=== PATIENT | male | born 1945 | race Caucasian/White ===

== ENCOUNTER 2022-03-07 16:53 | Inpatient (IN) ==
[2022-03-07 17:54] LABS: Basophils % 0.7 %; Eosinophils # 0.4 K/mcL (0.0-0.6); Eosinophils % 6.3 %; Hematocrit 32.3 % (37.5-50.1); Hemoglobin 10.9 g/dL (12.9-16.9); Immature Granulocytes % 0.5 % (0-4); Lymphocytes # 0.9 K/mcL (0.6-4.6); Lymphocytes % 15.9 %; Mean Corpuscular HGB Conc 33.7 g/dL (31.6-35.5); Mean Corpuscular Hemoglobin 30.8 pg (28.0-33.3); Mean Corpuscular Volume 91.2 fL (83.0-100.0); Mean Platelet Volume 9.4 fL (9.4-12.4); Monocytes # 0.3 K/mcL (0.0-1.3); Monocytes % 5.6 %; Neutrophils # 4.2 K/mcL (1.6-8.9); Platelet Count 208 K/mcL (140-400); Red Blood Count 3.54 M/mcL (4.19-5.50); Red Cell Distribution Width 13.6 % (11.5-14.5); White Blood Count 5.9 K/mcL (4.3-11.1)
[2022-03-07 18:01] LABS: Prothrombin Time 22.2 Seconds (9.4-12.1)
[2022-03-07 18:11] LABS: Calcium 9.2 mg/dL (8.6-10.3); Potassium 4.5 mEq/L (3.5-5.1)
[2022-03-07] MEDS ORDERED: *HR* Heparin 5,000 UNIT/ML VIAL IVP PRN (18:22)
[2022-03-07] MEDS ORDERED: *HR* Heparin 5,000 UNIT/ML VIAL IVP ONE (18:22)
[2022-03-07] MEDS ORDERED: Heparin 25,000UNIT/250ML 1/2NS 25,000 UNIT/250 ML IV.SOLN IVC SCH (18:30)
[2022-03-07 18:41] LABS: Heparin anti-factor XA UFH > 2.65 IU/mL (0.30-0.70)
[2022-03-07] MEDS ORDERED: Naloxone 0.4 MG/ML INJ IVP PRN (18:53)
[2022-03-07] MEDS ORDERED: Ondansetron 4 MG/2 ML VIAL IVP PRN (18:53)
[2022-03-07] MEDS ORDERED: Acetaminophen 325 MG TABLET PO PRN (18:53)
[2022-03-07] MEDS ORDERED: MOM Conc 10 ML UD.LIQ PO PRN (18:53)
[2022-03-07] MEDS: Heparin 25,000UNIT/250ML 1/2NS 25,000 UNIT/250 ML IV.SOLN IVC SCH (19:01)
[2022-03-08 02:45] LABS: Basophils # 0.1 K/mcL (0.0-0.2); Basophils % 0.8 %; Eosinophils # 0.4 K/mcL (0.0-0.6); Eosinophils % 6.3 %; Hematocrit 33.2 % (37.5-50.1); Hemoglobin 11.1 g/dL (12.9-16.9); Immature Granulocytes % 0.7 % (0-4); Lymphocytes # 1.2 K/mcL (0.6-4.6); Lymphocytes % 20.1 %; Mean Corpuscular HGB Conc 33.4 g/dL (31.6-35.5); Mean Corpuscular Hemoglobin 30.7 pg (28.0-33.3); Mean Platelet Volume 9.2 fL (9.4-12.4); Monocytes # 0.4 K/mcL (0.0-1.3); Monocytes % 5.9 %; Platelet Count 201 K/mcL (140-400); Red Blood Count 3.61 M/mcL (4.19-5.50); Red Cell Distribution Width 13.5 % (11.5-14.5); Segmented Neutrophils % 66.2 %; White Blood Count 6.1 K/mcL (4.3-11.1)
[2022-03-08 03:40] LABS: Calcium 9.4 mg/dL (8.6-10.3); Potassium 4.4 mEq/L (3.5-5.1)
[2022-03-08] MEDS ORDERED: allopurinoL 300 MG TABLET PO SCH (09:00)
[2022-03-08] MEDS: hydrOXYzine pamoate 25 MG CAPSULE PO SCH (09:15)
[2022-03-08] MEDS: carvediloL 6.25 MG TABLET PO SCH ×2 (09:16→16:24)
[2022-03-08] MEDS: lisinopriL 10 MG TABLET PO SCH (09:17)
[2022-03-08] MEDS: calcitrioL 0.25 MCG CAPSULE PO SCH (09:17)
[2022-03-08] MEDS: amLODIPine 5 MG TABLET PO SCH (09:17)
[2022-03-08] MEDS: Cyanocobalamin (B-12) 1,000 MCG TABLET PO SCH (09:18)
[2022-03-08] MEDS: Multivit/Ca/Min/Fe/FA 1 TAB TABLET PO SCH (09:18)
[2022-03-08] MEDS: Heparin 25,000UNIT/250ML 1/2NS 25,000 UNIT/250 ML IV.SOLN IVC SCH (09:48)
[2022-03-09] MEDS: amLODIPine 5 MG TABLET PO SCH (08:24)
[2022-03-09] MEDS: Cyanocobalamin (B-12) 1,000 MCG TABLET PO SCH (08:24)
[2022-03-09] MEDS: hydrOXYzine pamoate 25 MG CAPSULE PO SCH (08:24)
[2022-03-09] MEDS: carvediloL 6.25 MG TABLET PO SCH ×2 (08:24→16:44)
[2022-03-09] MEDS: calcitrioL 0.25 MCG CAPSULE PO SCH (08:24)
[2022-03-09] MEDS: Multivit/Ca/Min/Fe/FA 1 TAB TABLET PO SCH (08:24)
[2022-03-09 10:41] LABS: Hematocrit 32.6 % (37.5-50.1); Hemoglobin 10.8 g/dL (12.9-16.9); Mean Corpuscular HGB Conc 33.1 g/dL (31.6-35.5); Mean Corpuscular Hemoglobin 30.7 pg (28.0-33.3); Mean Corpuscular Volume 92.6 fL (83.0-100.0); Mean Platelet Volume 10.1 fL (9.4-12.4); Platelet Count 173 K/mcL (140-400); Red Blood Count 3.52 M/mcL (4.19-5.50); Red Cell Distribution Width 13.5 % (11.5-14.5)
[2022-03-09 10:53] LABS: Calcium 9.3 mg/dL (8.6-10.3); Potassium 4.5 mEq/L (3.5-5.1)
[2022-03-09] MEDS: Heparin 25,000UNIT/250ML 1/2NS 25,000 UNIT/250 ML IV.SOLN IVC SCH (11:01)
[2022-03-09] MEDS: PHOSPHOROUS PO SCH (20:43)
[2022-03-10] MEDS: Heparin 25,000UNIT/250ML 1/2NS 25,000 UNIT/250 ML IV.SOLN IVC SCH (01:30)
[2022-03-10] MEDS: Melatonin 3 MG TABLET PO PRN ×2 (01:30→21:24)
[2022-03-10 01:36] LABS: Hematocrit 32.5 % (37.5-50.1); Mean Corpuscular HGB Conc 33.8 g/dL (31.6-35.5); Mean Corpuscular Hemoglobin 30.7 pg (28.0-33.3); Mean Corpuscular Volume 90.8 fL (83.0-100.0); Mean Platelet Volume 9.4 fL (9.4-12.4); Platelet Count 203 K/mcL (140-400); Red Blood Count 3.58 M/mcL (4.19-5.50); Red Cell Distribution Width 13.3 % (11.5-14.5); White Blood Count 7.3 K/mcL (4.3-11.1)
[2022-03-10] MEDS: *HR* Heparin 5,000 UNIT/ML VIAL IVP PRN ×2 (01:53→15:15)
[2022-03-10 03:34] LABS: Calcium 10.1 mg/dL (8.6-10.3); Potassium 4.7 mEq/L (3.5-5.1)
[2022-03-10] MEDS: Magnesium Oxide 400 MG TABLET PO SCH (08:29)
[2022-03-10] MEDS: amLODIPine 5 MG TABLET PO SCH (08:30)
[2022-03-10] MEDS: hydrOXYzine pamoate 25 MG CAPSULE PO SCH ×2 (08:30→21:24)
[2022-03-10] MEDS: Multivit/Ca/Min/Fe/FA 1 TAB TABLET PO SCH (08:30)
[2022-03-10] MEDS: calcitrioL 0.25 MCG CAPSULE PO SCH (08:30)
[2022-03-10] MEDS: Cyanocobalamin (B-12) 1,000 MCG TABLET PO SCH (08:30)
[2022-03-10] MEDS: carvediloL 6.25 MG TABLET PO SCH ×2 (08:30→17:05)
[2022-03-10] MEDS: PHOSPHOROUS PO SCH ×2 (08:31→21:25)
[2022-03-11] MEDS: Heparin 25,000UNIT/250ML 1/2NS 25,000 UNIT/250 ML IV.SOLN IVC SCH (03:18)
[2022-03-11 03:49] LABS: Hematocrit 34.9 % (37.5-50.1); Hemoglobin 11.8 g/dL (12.9-16.9); Mean Corpuscular HGB Conc 33.8 g/dL (31.6-35.5); Mean Corpuscular Hemoglobin 30.6 pg (28.0-33.3); Mean Corpuscular Volume 90.6 fL (83.0-100.0); Mean Platelet Volume 9.6 fL (9.4-12.4); Platelet Count 218 K/mcL (140-400); Red Blood Count 3.85 M/mcL (4.19-5.50); Red Cell Distribution Width 13.5 % (11.5-14.5); White Blood Count 8.9 K/mcL (4.3-11.1)
[2022-03-11 04:50] LABS: Calcium 10.4 mg/dL (8.6-10.3); Potassium 4.6 mEq/L (3.5-5.1)
[2022-03-11] MEDS: Magnesium Oxide 400 MG TABLET PO SCH (08:42)
[2022-03-11] MEDS: hydrOXYzine pamoate 25 MG CAPSULE PO SCH ×2 (08:42→19:48)
[2022-03-11] MEDS: calcitrioL 0.25 MCG CAPSULE PO SCH (08:42)
[2022-03-11] MEDS: Multivit/Ca/Min/Fe/FA 1 TAB TABLET PO SCH (08:42)
[2022-03-11] MEDS: Cyanocobalamin (B-12) 1,000 MCG TABLET PO SCH (08:43)
[2022-03-11] MEDS: carvediloL 6.25 MG TABLET PO SCH ×2 (08:43→16:44)
[2022-03-11] MEDS: amLODIPine 5 MG TABLET PO SCH (08:43)
[2022-03-11] MEDS: PHOSPHOROUS PO SCH ×2 (08:43→19:49)
[2022-03-11 10:28] LABS: INR 1.3
[2022-03-11] MEDS: *HR* Heparin 5,000 UNIT/ML VIAL IVP PRN (11:22)
[2022-03-11] MEDS ORDERED: *HR* Warfarin 5 MG TABLET PO ONE (18:00)
[2022-03-11] MEDS ORDERED: Warfarin perPT PO PRN (18:00)
[2022-03-12] MEDS: Heparin 25,000UNIT/250ML 1/2NS 25,000 UNIT/250 ML IV.SOLN IVC SCH ×3 (08:01→17:56)
[2022-03-12] MEDS: hydrOXYzine pamoate 25 MG CAPSULE PO SCH ×2 (08:03→20:00)
[2022-03-12] MEDS: Multivit/Ca/Min/Fe/FA 1 TAB TABLET PO SCH (08:03)
[2022-03-12] MEDS: calcitrioL 0.25 MCG CAPSULE PO SCH (08:03)
[2022-03-12] MEDS: PHOSPHOROUS PO SCH ×2 (08:03→20:00)
[2022-03-12] MEDS: Magnesium Oxide 400 MG TABLET PO SCH (08:03)
[2022-03-12] MEDS: carvediloL 6.25 MG TABLET PO SCH ×2 (08:03→17:50)
[2022-03-12] MEDS: amLODIPine 5 MG TABLET PO SCH (08:03)
[2022-03-12] MEDS: Cyanocobalamin (B-12) 1,000 MCG TABLET PO SCH (08:04)
[2022-03-12 08:21] LABS: Basophils # 0.1 K/mcL (0.0-0.2); Basophils % 1.1 %; Eosinophils # 0.2 K/mcL (0.0-0.6); Eosinophils % 2.7 %; Hemoglobin 10.5 g/dL (12.9-16.9); Immature Granulocytes % 1.8 % (0-4); Lymphocytes # 2.8 K/mcL (0.6-4.6); Lymphocytes % 31.1 %; Mean Corpuscular HGB Conc 33.9 g/dL (31.6-35.5); Mean Corpuscular Hemoglobin 30.5 pg (28.0-33.3); Mean Corpuscular Volume 90.1 fL (83.0-100.0); Mean Platelet Volume 9.6 fL (9.4-12.4); Monocytes # 0.5 K/mcL (0.0-1.3); Monocytes % 5.3 %; Neutrophils # 5.2 K/mcL (1.6-8.9); Platelet Count 192 K/mcL (140-400); Red Blood Count 3.44 M/mcL (4.19-5.50); Red Cell Distribution Width 13.3 % (11.5-14.5); White Blood Count 8.9 K/mcL (4.3-11.1)
[2022-03-12 08:40] LABS: INR 1.2; Prothrombin Time 13.3 Seconds (9.4-12.1)
[2022-03-12 08:52] LABS: Calcium 9.7 mg/dL (8.6-10.3); Potassium 4.5 mEq/L (3.5-5.1)
[2022-03-12] MEDS ORDERED: *HR* Warfarin 7.5 MG TABLET PO ONE (18:00)
[2022-03-13 07:56] LABS: Basophils # 0.1 K/mcL (0.0-0.2); Basophils % 0.7 %; Eosinophils # 0.3 K/mcL (0.0-0.6); Eosinophils % 3.3 %; Hematocrit 32.3 % (37.5-50.1); Hemoglobin 10.9 g/dL (12.9-16.9); Immature Granulocytes % 2.2 % (0-4); Lymphocytes # 2.3 K/mcL (0.6-4.6); Lymphocytes % 24.3 %; Mean Corpuscular HGB Conc 33.7 g/dL (31.6-35.5); Mean Corpuscular Hemoglobin 30.1 pg (28.0-33.3); Mean Corpuscular Volume 89.2 fL (83.0-100.0); Mean Platelet Volume 9.9 fL (9.4-12.4); Monocytes # 0.5 K/mcL (0.0-1.3); Monocytes % 5.6 %; Platelet Count 194 K/mcL (140-400); Red Blood Count 3.62 M/mcL (4.19-5.50); Red Cell Distribution Width 13.3 % (11.5-14.5); Segmented Neutrophils % 63.9 %; White Blood Count 9.4 K/mcL (4.3-11.1)
[2022-03-13 08:05] LABS: INR 1.2; Prothrombin Time 13.8 Seconds (9.4-12.1)
[2022-03-13 08:16] LABS: Calcium 9.9 mg/dL (8.6-10.3); Potassium 4.2 mEq/L (3.5-5.1)
[2022-03-13] MEDS: carvediloL 6.25 MG TABLET PO SCH ×2 (09:39→17:56)
[2022-03-13] MEDS: Magnesium Oxide 400 MG TABLET PO SCH (09:39)
[2022-03-13] MEDS: calcitrioL 0.25 MCG CAPSULE PO SCH (09:39)
[2022-03-13] MEDS: lisinopriL 10 MG TABLET PO SCH (09:39)
[2022-03-13] MEDS: amLODIPine 5 MG TABLET PO SCH (09:39)
[2022-03-13] MEDS: Cyanocobalamin (B-12) 1,000 MCG TABLET PO SCH (09:40)
[2022-03-13] MEDS: hydrOXYzine pamoate 25 MG CAPSULE PO SCH ×2 (09:40→21:18)
[2022-03-13] MEDS: Multivit/Ca/Min/Fe/FA 1 TAB TABLET PO SCH (09:40)
[2022-03-13] MEDS: PHOSPHOROUS PO SCH ×2 (09:40→21:19)
[2022-03-13] MEDS: Heparin 25,000UNIT/250ML 1/2NS 25,000 UNIT/250 ML IV.SOLN IVC SCH (11:18)
[2022-03-13] MEDS: Sennosides/Docusate Sodium TABLET PO SCH (11:20)
[2022-03-13] MEDS ORDERED: *HR* Warfarin 5 MG TABLET PO ONE (18:00)
[2022-03-14 06:36] LABS: Basophils # 0.1 K/mcL (0.0-0.2); Basophils % 0.8 %; Eosinophils # 0.3 K/mcL (0.0-0.6); Hematocrit 34.9 % (37.5-50.1); Hemoglobin 11.6 g/dL (12.9-16.9); Immature Granulocytes % 2.2 % (0-4); Lymphocytes # 2.9 K/mcL (0.6-4.6); Lymphocytes % 25.8 %; Mean Corpuscular HGB Conc 33.2 g/dL (31.6-35.5); Mean Corpuscular Hemoglobin 30.2 pg (28.0-33.3); Mean Corpuscular Volume 90.9 fL (83.0-100.0); Mean Platelet Volume 10.1 fL (9.4-12.4); Monocytes # 0.5 K/mcL (0.0-1.3); Monocytes % 4.6 %; Neutrophils # 7.1 K/mcL (1.6-8.9); Platelet Count 233 K/mcL (140-400); Red Blood Count 3.84 M/mcL (4.19-5.50); Red Cell Distribution Width 13.7 % (11.5-14.5); Segmented Neutrophils % 63.6 %; White Blood Count 11.2 K/mcL (4.3-11.1)
[2022-03-14 06:55] LABS: INR 1.3; Prothrombin Time 14.9 Seconds (9.4-12.1)
[2022-03-14 07:04] LABS: Calcium 10.4 mg/dL (8.6-10.3); Magnesium 1.6 mg/dL (1.6-2.6); Potassium 4.2 mEq/L (3.5-5.1)
[2022-03-14] MEDS: Sennosides/Docusate Sodium TABLET PO SCH (08:41)
[2022-03-14] MEDS: lisinopriL 10 MG TABLET PO SCH (08:41)
[2022-03-14] MEDS: Cyanocobalamin (B-12) 1,000 MCG TABLET PO SCH (08:41)
[2022-03-14] MEDS: amLODIPine 5 MG TABLET PO SCH (08:41)
[2022-03-14] MEDS: Multivit/Ca/Min/Fe/FA 1 TAB TABLET PO SCH (08:41)
[2022-03-14] MEDS: calcitrioL 0.25 MCG CAPSULE PO SCH (08:41)
[2022-03-14] MEDS: hydrOXYzine pamoate 25 MG CAPSULE PO SCH ×2 (08:41→21:10)
[2022-03-14] MEDS: Magnesium Oxide 400 MG TABLET PO SCH (08:42)
[2022-03-14] MEDS: carvediloL 6.25 MG TABLET PO SCH ×2 (08:44→18:02)
[2022-03-14] MEDS: Heparin 25,000UNIT/250ML 1/2NS 25,000 UNIT/250 ML IV.SOLN IVC SCH ×2 (13:47→13:56)
[2022-03-14] MEDS: PHOSPHOROUS PO SCH ×2 (13:48→21:10)
[2022-03-14] MEDS: MOM Conc 10 ML UD.LIQ PO SCH (13:56)
[2022-03-14] MEDS ORDERED: *HR* Warfarin 5 MG TABLET PO ONE (18:00)
[2022-03-15 07:32] LABS: Basophils # 0.1 K/mcL (0.0-0.2); Basophils % 0.8 %; Eosinophils # 0.2 K/mcL (0.0-0.6); Eosinophils % 2.1 %; Hematocrit 31.4 % (37.5-50.1); Hemoglobin 10.8 g/dL (12.9-16.9); Immature Granulocytes % 2.7 % (0-4); Lymphocytes # 2.4 K/mcL (0.6-4.6); Lymphocytes % 23.5 %; Mean Corpuscular HGB Conc 34.4 g/dL (31.6-35.5); Mean Corpuscular Hemoglobin 31.1 pg (28.0-33.3); Mean Corpuscular Volume 90.5 fL (83.0-100.0); Mean Platelet Volume 9.5 fL (9.4-12.4); Monocytes # 0.5 K/mcL (0.0-1.3); Monocytes % 4.9 %; Neutrophils # 6.8 K/mcL (1.6-8.9); Platelet Count 199 K/mcL (140-400); Red Blood Count 3.47 M/mcL (4.19-5.50); Red Cell Distribution Width 13.8 % (11.5-14.5); White Blood Count 10.3 K/mcL (4.3-11.1)
[2022-03-15 07:53] LABS: INR 2.1
[2022-03-15 07:58] LABS: Potassium 4.6 mEq/L (3.5-5.1)
[2022-03-15] MEDS: Heparin 25,000UNIT/250ML 1/2NS 25,000 UNIT/250 ML IV.SOLN IVC SCH (08:47)
[2022-03-15 10:41] VITALS: BP 108/57; PULSE 68; RESP 18; TEMP 98.4; O2SAT 97
[2022-03-15] MEDS: Magnesium Oxide 400 MG TABLET PO SCH ×2 (11:22→11:23)
[2022-03-15] MEDS: Sennosides/Docusate Sodium TABLET PO SCH (11:22)
[2022-03-15] MEDS: Multivit/Ca/Min/Fe/FA 1 TAB TABLET PO SCH (11:23)
[2022-03-15] MEDS: carvediloL 6.25 MG TABLET PO SCH (11:23)
[2022-03-15] MEDS: calcitrioL 0.25 MCG CAPSULE PO SCH (11:23)
[2022-03-15] MEDS: PHOSPHOROUS PO SCH (11:23)
[2022-03-15] MEDS: hydrOXYzine pamoate 25 MG CAPSULE PO SCH (11:23)
[2022-03-15] MEDS: MOM Conc 10 ML UD.LIQ PO SCH (11:23)
[2022-03-15] MEDS: Cyanocobalamin (B-12) 1,000 MCG TABLET PO SCH (11:23)
[2022-03-15] MEDS: amLODIPine 5 MG TABLET PO SCH (11:23)
[2022-03-15] MEDS: lisinopriL 10 MG TABLET PO SCH (11:24)
[2022-03-15] MEDS ORDERED: *HR* Warfarin 5 MG TABLET PO ONE (13:17)
== END 2022-03-15 13:55 | disposition home or self-care (01) | DRG 300 ==
LOC: EMEROOPIK 16:53 → INPPIK 22:46
PROVIDERS: ADMIT Registered Nurse Emergency; ATTEND Registered Nurse Emergency